=== PATIENT | male | born 1995 | race Caucasian/White ===

== ENCOUNTER 2021-10-17 04:19 | Emergency (ER) | payer BC ==
[2021-10-17] MEDS ORDERED: Aspirin 81 MG Tab.Chew PO ONE (04:54)
[2021-10-17] MEDS ORDERED: Metoprolol Succinate 25 MG Tab.ER PO ONE (05:02)
[2021-10-17 05:42] LABS: CORONAVIRUS COVID-19 NAA NEGATIVE (NEGATIVE)
[2021-10-17 07:03] VITALS: BP 133/73; PULSE 99
== END 2021-10-17 06:50 | disposition home or self-care (01) ==
LOC: FB.ED 04:19
DX: E11.65 Type 2 diabetes mellitus with hyperglycemia (principal); I10 Essential (primary) hypertension; E66.9 Obesity, unspecified; Z68.39 Body mass index [BMI] 39.0-39.9, adult; R00.0 Tachycardia, unspecified; Z20.822 Contact with and (suspected) exposure to COVID-19; Z79.84 Long term (current) use of oral hypoglycemic drugs
CPT/HCPCS: 0240U; 36415; 71046; 80053; 80307; 81001; 84484; 85025; 85379; 93005; 93010; 99284; 99285-25; A9270-GY